=== PATIENT | female | born 1940 | race Caucasian/White ===

== ENCOUNTER 2017-02-13 11:05 | Emergency (ER) | payer MEDICARE, MEDICAID ==
[~2017-02-13] VITALS: Ht 162.6 cm; Wt 68.9 kg
[~2017-02-13 11:05] MED LIST: ALPR0.5T PO; ATEN100T PO; LOSA100T15 PO; WARF3TAB6 PO; WARF4TAB6 PO
--- NOTE | 2017-02-13 11:07 | NUR ---
PT BIB SON TO ER BED 12. C/O EPISODE OF BLURRING VISION, HEADACHE AND SOMETIMES PT STATES HEAD FEELS TINGLY. PT DENIES CHEST PAIN, HX OF A FIB. EPISODE OF ANXIETY EARLIER AND STATES TOOK XANAX. PT VSS. NAD NOTED. AWAITING MD COR[place].
--- NOTE | 2017-02-13 11:39 | NUR ---
DR FUNES AT BEDSIDE FOR EVAL.
--- NOTE | 2017-02-13 11:52 | NUR ---
MEDICAL DIAGNOSTIC RADIOGRAPHER AT BEDSIDE FOR BLOOD DRAW.
[2017-02-13 11:57] LABS: BASOPHILS % (AUTO) 0.2 % (0.0-2.0); EOSINOPHILS # (AUTO) 0.3 /CMM (0.0-0.7); EOSINOPHILS % (AUTO) 3.8 % (0.0-6.0); HEMATOCRIT 41 % (33-45); HEMOGLOBIN 13.2 g/dL (11.5-14.8); LYMPHOCYTES # (AUTO) 1.7 /CMM (0.8-4.8); LYMPHOCYTES % (AUTO) 20.7 % (20.0-44.0); MEAN CORPUSCULAR HEMOGLOBIN 28 PG (26.0-33.0); MEAN CORPUSCULAR HGB CONC 32 g/dl (31.0-36.0); MEAN CORPUSCULAR VOLUME 87 fL (82-100); MONOCYTES # (AUTO) 0.6 /CMM (0.1-1.30); MONOCYTES % (AUTO) 7.9 % (2.0-12.0); NEUTROPHILS # (AUTO) 5.4 /CMM (1.8-8.9); NEUTROPHILS % (AUTO) 67.4 % (43.0-81.0); PLATELET COUNT (AUTO) 152 /CMM (150-450); RDW COEFFICIENT OF VARIATION 13.2 (11.5-15.0); RED BLOOD CELL COUNT(AUTO) 4.75 MIL/uL (4.0-5.2); WHITE BLOOD COUNT (AUTO) 8.1 K/uL (4.3-11.0)
[2017-02-13 12:08] LABS: CARBON DIOXIDE 29 mmol/L (21-32); CHLORIDE 108 mmol/L (98-107); CREATININE 0.9 mg/dL (0.6-1.3); GLUCOSE 122 mg/dL (74-106); POTASSIUM 3.9 mmol/L (3.5-5.1); SODIUM SERUM 142 mmol/L (136-145); UREA NITROGEN, BLOOD 15 mg/dL (7-18)
[2017-02-13 12:11] LABS: INR 1.17 (0.87-1.13); PROTHROMBIN TIME 12.2 SECS (9.5-12.7)
[2017-02-13 12:16] LABS: TROPONIN I < 0.017 ng/mL (0.00-0.056)
--- NOTE | 2017-02-13 13:47 | NUR ---
Patient discharged to home in stable condition. Written and verbal after care instructions given. Patient verbalizes understanding of instruction.
[2017-02-13 13:49] VITALS: BP 158/70
== END 2017-02-13 13:50 | disposition home or self-care (01) ==
LOC: ER 11:08
DX: H43.393 Other vitreous opacities, bilateral (principal); R79.1 Abnormal coagulation profile; I25.2 Old myocardial infarction; I48.91 Unspecified atrial fibrillation; Z79.01 Long term (current) use of anticoagulants; Z88.0 Allergy status to penicillin; Z90.89 Acquired absence of other organs
CPT/HCPCS: 36415; 70450; 71010; 80048; 84484; 85025; 85730; 93005; 99285; A4606; Z7610